=== PATIENT | female | born 1995 | race Caucasian/White ===

== ENCOUNTER 2022-10-26 16:25 | Emergency (ER) | payer BC ==
--- OUTSIDE RECORDS SUMMARY | 2022-10-26 16:30 | XMS REPORT | Continuity of Care Document ---
:1995 Author Organization [facility] t Address [address] [facility] [address] [place] [id number] Care Team Providers Name Role Phone SHERIDAN HERR Primary Care Physician Unavailable CANDIS RODRIGUEZ Attending Clinician Unavailable CANDIS RODRIGUEZ Attending Clinician Unavailable Terence TURN DOWN WORKERSheridan Walker Attending Clinician CITLALI RANGEL Attending Clinician Unavailable Citlali Jacobs Attending Clinician Unknown, Attending Attending Clinician Unavailable Ladarius Uriarte MD Attending Clinician Doctor Unassigned, [place] Attending Clinician Unavailable RAFAEL FITZGERALD Attending Clinician Unavailable SHERIDAN HERR Attending Clinician Unavailable Lab, Ang - Db Attending Clinician Unavailable XIAO REYNOLDS Attending Clinician Unavailable Payers Payer Name Policy Type Policy Number Effective Date Expiration Date S [facility] [place] OF [place] - [id number] 2021 00:00:00 OUT OF STATE Problems Condition Condition Condition Status Onset Resolution Last Treating Co mments Source Name Details Category Date Date Treatment Clinician Date Encounter Encounter Disease Active Uni vers for well for well 6-08 [place]y [place] exam [place] with with 00 Medical routine routine Branch gynecologi gynecologi jigar exam jigar exam BMI BMI Disease Active Univers 39.0-39.9, 39.0-39.9, 6-08 it y of adult adult 00:00: [place] 00 Medical Branch Screening Screening Disease Active Uni vers for for 6-08 [place] of malignant malignant [place] Med[place] of the of the Branch cervix cervix Allergies, Adverse Reactions, Alerts Allergy Allergy Status Severity Reaction(s) Onset Inactive Treating Comm ents Source Name Type Date Date Clinician Sulfa Propensi Active Hives Univers (Sulfona ty to 2-01 ity of mide adverse 00:00: [place] Antibiot reaction 00 Medica l ics) s Branch SULFA Drug Active Hives Univers (SULFONA Class 2-01 ity of MIDE 00:00: [place] ANTIBIOT 00 Medical ICS) Branch Social History Social Habit Start Date Stop Date Quantity Comments Source Exposure to 2022-03-30 2022-04-[address] [facility] SARS-CoV-2 00:00:00 08:39:00 [facility] (event) [place] Alcohol intake 2021-11-26 2021-11-[address] Ex-[address] [facility] 00:00:00 00:00:00 (finding) [facility] Tobacco use and 2021-07-22 2021-07-22 Smokeless tobacco Un iversity of exposure 00:00:00 00:00:00 non-user [facility] Sex Ass[birth year] At [birth year] Universit y of 00:00:00 00:00:00 [facility] Smoking Status Start Date Stop Date Source Never smoked tobacco [facility] Medications Ordered Filled Start Stop Current Ordering Indication Dosage Frequency Signature Comments Components Source Medication Medication Date Date Medication? Clinician (SIG) Name Name venlafaxine Yes [id number] 150mg Take 1 Univers XR 150 mg 1-02 capsule by ity of 24 hr 00:00: mouth [place] capsule 00 daily with Medica l breakfast. Branch codeine-gua 2021-06 No 10mL Take 10 mL Univers ifenesin 0-20 10-28 by mouth ity of 10-100 mg/5 00:00: 04:59 [place] 6 [place] mL oral 00 :00 (six) Medical solution hours as Branch needed for Cough for up to 7 days. Indication s: cough codeine-gua 2021-06- No 10mL Take 10 mL Univers ifenesin 0-20 10-28 by mouth ity of 10-100 mg/5 00:00: 04:59 [place] 6 [place] mL oral 00 :00 (six) Medical solution hours as Branch needed for Cough for up to 7 days. Indication s: cough predniSONE 2021-06- No [id number] 40mg Take 2 Univers 20 mg 0-20 10-26 tablets by ity of tablet 00:00: 04:59 mouth in [place] 00 :00 the Medical morning Branch for 5 days. predniSONE 2021-06- No [id number] 40mg Take 2 Univers 20 mg 0-20 10-26 tablets by ity of tablet 00:00: 04:59 mouth in [place] 00 :00 the Medical morning Branch for 5 days. venlafaxine 2021-06 Yes [id number] 150mg Take 1 Univers XR 150 mg 0-10 capsule by ity of 24 hr 00:00: mouth [place] capsule 00 daily with Medica l breakfast. Branch venlafaxine 2021-06 Yes [id number] 150mg Take 1 Univers XR 150 mg 0-10 capsule by ity of 24 hr 00:00: mouth [place] capsule 00 daily with Medica l breakfast. Branch venlafaxine 2021-06 Yes [id number] 150mg Take 1 Univers XR 150 mg 0-10 capsule by ity of 24 hr 00:00: mouth [place] capsule 00 daily with Medica l breakfast. Branch venlafaxine 2021-06- No [id number] 150mg Take 1 Univers XR 150 mg 0-10 01-02 capsule by ity of 24 hr 00:00: 00:00 mouth [place] capsule 00 :00 daily with Medica l breakfast. Branch venlafaxine Yes [id number] 150mg Take 1 Univers XR 150 mg 7-07 capsule by ity of 24 hr 00:00: mouth [place] capsule 00 daily with Medica l breakfast. Branch venlafaxine 2021- No [id number] 150mg Take 1 Univers XR 150 mg 7-07 10-10 capsule by ity of 24 hr 00:00: 00:00 mouth [place] capsule 00 :00 daily with Medica l breakfast. Branch mv-mn/iron Yes Take by Univ ers fum/FA/omeg 6-07 mouth. ity of a3,6,9#3 09:03: [place] ([facility] 10 Medical MULTI ORAL) Branch ferrous Yes 325mg Take 325 Unive rs sulfate 6-07 mg by ity of (IRON) 325 09:03: mouth 3 [place] mg (65 mg 10 (three) Medical iron) times Branch tablet daily with meals. Indication s: OTC Lactobacill 2022-0 Yes Take by Uni vers us 6-07 mouth. ity of rhamnosus 09:03: [place] [address] Medical (CULTURELLE Branch ORAL) mv-mn/iron 2022-0 Yes Take by Univ ers fum/FA/omeg 6-07 mouth. ity of a3,6,9#3 09:03: [place] ([facility] 10 Medical MULTI ORAL) Branch ferrous 2022-0 Yes 325mg Take 325 Unive rs sulfate 6-07 mg by ity of (IRON) 325 09:03: mouth 3 [place] mg (65 mg 10 (three) Medical iron) times Branch tablet daily with meals. Indication s: OTC Lactobacill 2022-0 Yes Take by Uni vers us 6-07 mouth. ity of rhamnosus 09:03: [place] [address] Medical (CULTURELLE Branch ORAL) mv-mn/iron 2-0 Yes Take by Univ ers fum/FA/omeg 6-07 mouth. ity of a3,6,9#3 09:03: [place] ([facility] Medical MULTI ORAL) Branch ferrous 2022-0 Yes 325mg Take 325 Unive rs sulfate 6-07 mg by ity of (IRON) 325 09:03: mouth 3 [place] mg (65 mg 10 (three) Medical iron) times Branch tablet daily with meals. Indication s: OTC Lactobacill 2-0 Yes Take by Uni vers us 6-07 mouth. ity of rhamnosus 09:03: [place] [address] Medical (CULTURELLE Branch ORAL) mv-mn/iron 2022-0 Yes Take by Univ ers fum/FA/omeg 6-07 mouth. ity of a3,6,9#3 09:03: [place] ([facility] Medical MULTI ORAL) Branch ferrous 2022-0 Yes 325mg Take 325 Unive rs sulfate 6-07 mg by ity of (IRON) 325 09:03: mouth 3 [place] mg (65 mg 10 (three) Medical iron) times Branch tablet daily with meals. Indication s: OTC Lactobacill 2022-0 Yes Take by Uni vers us 6-07 mouth. ity of rhamnosus 09:03: [place] [address] Medical (CULTURELLE Branch ORAL) mv-mn/iron 2021-0 Yes Take by Univ ers fum/FA/omeg 6-07 mouth. ity of a3,6,9#3 09:03: [place] ([facility] Medical MULTI ORAL) Branch ferrous 2021-0 Yes 325mg Take 325 Unive rs sulfate 6-07 mg by ity of (IRON) 325 09:03: [place] mg (65 mg 10 (three) Medical iron) times Branch tablet daily with meals. Indication s: OTC Lactobacill 2-0 Yes Take by Uni vers us 6-07 mouth. ity of rhamnosus 09:03: [place] [address] Medical (CULTURELLE Branch ORAL) mv-mn/iron 2021-0 Yes Take by Univ ers fum/FA/omeg 6-07 mouth. ity of a3,6,9#3 09:03: [place] ([place] [address] Medical MULTI ORAL) Branch ferrous 2021-0 Yes 325mg Take 325 Unive rs sulfate 6-07 mg by ity of (IRON) 325 09:03: mouth 3 [place] mg (65 mg 10 (three) Medical iron) times Branch tablet daily with meals. Indication s: OTC Lactobacill 2021-0 Yes Take by Uni vers us 6-07 mouth. ity of rhamnosus 09:03: [place] [address] Medical (CULTURELLE Branch ORAL) mv-mn/iron 2021-0 Yes Take by Univ ers fum/FA/omeg 6-07 mouth. ity of a3,6,9#3 09:03: [place] ([facility] 10 Medical MULTI ORAL) Branch ferrous 2021-0 Yes 325mg Take 325 Unive rs sulfate 6-07 mg by ity of (IRON) 325 09:03: mouth 3 [place] mg (65 mg 10 (three) Medical iron) times Branch tablet daily with meals. Indication s: OTC Lactobacill 2021-0 Yes Take by Uni vers us 6-07 mouth. ity of rhamnosus 09:03: [place] [address] Medical (CULTURELLE Branch ORAL) naltrexone- 2021-0 Yes [id number] 1{tbl} Take 1 Univers bupropion 5-17 104 tablet by ity o f (CONTRAVE) 00:00: [place] 8-90 mg per 00 (two) Medical tablet times Branch daily. Start 1 tab QAM for 1 week, then BID naltrexone- 2022-0 Yes [id number] 1{tbl} Take 1 Univers bupropion 5-17 104 tablet by ity o f (CONTRAVE) 00:00: mouth [place] 8-90 mg per 00 (two) Medical tablet times Branch daily. Start 1 tab QAM for 1 week, then BID naltrexone- 2022-0 Yes [id number] 1{tbl} Take 1 Univers bupropion 5-17 104 tablet by ity o f (CONTRAVE) 00:00: mouth 2 [place] 8-90 mg per 00 (two) Medical tablet times Branch daily. Start 1 tab QAM for 1 week, then BID naltrexone- 2022-0 Yes [id number] 1{tbl} Take 1 Univers bupropion 5-17 104 tablet by ity o f (CONTRAVE) 00:00: mouth 2 [place] 8-90 mg per 00 (two) Medical tablet times Branch daily. Start 1 tab QAM for 1 week, then BID naltrexone- 2022-0 Yes [id number] 1{tbl} Take 1 Univers bupropion 5-17 104 tablet by ity o f (CONTRAVE) 00:00: mouth 2 [place] 8-90 mg per 00 (two) Medical tablet times Branch daily. Start 1 tab QAM for 1 week, then BID naltrexone- 2022-0 2022- No [id number] 1{tbl} Take 1 Univers bupropion 5-17 10-20 104 tablet by ity of (CONTRAVE) 00:00: 00:00 mouth 2 [place] as 8-90 mg per 00 :00 (two) Medical tablet times Branch daily. Start 1 tab QAM for 1 week, then BID dicyclomine 2022-0 Yes 20mg Take 1 Univ ers 20 mg 3-14 tablet by ity of tablet 00:00: mouth (four) Medical times Branch daily. venlafaxine 2022-0 Yes 150mg Take 1 Uni vers XR 150 mg 3-14 capsule by ity of 24 hr 00:00: mouth [place] capsule 00 daily with Medica l breakfast. Branch dicyclomine 2022-0 Yes 20mg Take 1 Univ ers 20 mg 3-14 tablet by ity of tablet 00:00: mouth 4 00 (four) Medical times Branch daily. dicyclomine 2022-0 Yes 20mg Take 1 Univ ers 20 mg 3-14 tablet by ity of tablet 00:00: mouth [place] (four) Medical times Branch daily. dicyclomine 2022-0 Yes 20mg Take 1 Univ ers 20 mg 3-14 tablet by ity of tablet 00:00: mouth 4 [place] (four) Medical times Branch daily. dicyclomine 2022-0 Yes 20mg Take 1 Univ ers 20 mg 3-14 tablet by ity of tablet 00:00: mouth [place] (four) Medical times Branch daily. dicyclomine 2022-0 Yes 20mg Take 1 Univ ers 20 mg 3-14 tablet by ity of tablet 00:00: mouth [place] (four) Medical times Branch daily. dicyclomine 2021-0 Yes 20mg Take 1 Univ ers 20 mg 3-14 tablet by ity of tablet 00:00: mouth [place] (four) Medical times Branch daily. venlafaxine 2021-0 2021- No 150mg Take 1 Un citlali XR 150 mg 3-14 07-07 capsule by ity of 24 hr 00:00: 00:00 mouth [place] capsule 00 :00 daily with Medica l breakfast. Branch bromphenira 2021-0 Yes [id number] 5mL Take 5 mL Univers mine-pseudo 3-07 by mouth 4 it y of ephedrine-D 00:00: (four[place] M (BROMFED 00 times Medical DM) 2-30-10 daily as Bran ch mg/5 mL needed for syrup Congestion /Allergies or Cough. fexofenadin 2021-0 Yes [id number] 1{tbl} Take 1 Univers e-pseudoeph 3-07 tablet by ity of edrine 00:00: mouth 2 [place] (MACKENZIE-D) 00 (two) Medical 60-120 mg times Branch per tablet daily. albuterol 2021-0 Yes [id number] 2{puff} Inhale 2 Univers 90 3-07 Puffs ity of mcg/actuati 00:00: every 6 [place] on inhaler 00 (six) Medical hours as Branch needed for Wheezing or Shortness of Breath. bromphenira 2021-0 Yes [id number] 5mL Take 5 mL Univers mine-pseudo 3-07 by mouth 4 it y of ephedrine-D 00:00: (four[place] M (BROMFED 00 times Medical DM) 2-30-10 daily as Bran ch mg/5 mL needed for syrup Congestion /Allergies or Cough. fexofenadin Yes [id number] 1{tbl} Take 1 Univers e-pseudoeph 3-07 tablet by ity of edrine 00:00: mouth 2 [place] (MACKENZIE-D) 00 (two) Medical 60-120 mg times Branch per tablet daily. albuterol Yes [id number] 2{puff} Inhale 2 Univers 90 3-07 Puffs ity of mcg/actuati 00:00: every 6 [place] on inhaler 00 (six) Medical hours as Branch needed for Wheezing or Shortness of Breath. bromphenira Yes [id number] 5mL Take 5 mL Univers mine-pseudo 3-07 by mouth 4 it y of ephedrine-D 00:00: (four[place] M (BROMFED 00 times Medical DM) 2-30-10 daily as Bran ch mg/5 mL needed for syrup Congestion /Allergies or Cough. fexofenadin Yes [id number] 1{tbl} Take 1 Univers e-pseudoeph 3-07 tablet by ity of edrine 00:00: mouth 2 [place] (MACKENZIE-D) 00 (two) Medical 60-120 mg times Branch per tablet daily. albuterol 0 Yes [id number] 2{puff} Inhale 2 Univers 90 3-07 Puffs ity of mcg/actuati 00:00: every 6 [place] on inhaler 00 (six) Medical hours as Branch needed for Wheezing or Shortness of Breath. bromphenira 0 Yes [id number] 5mL Take 5 mL Univers mine-pseudo 3-07 by mouth 4 it y of ephedrine-D 00:00: (four[place] M (BROMFED 00 times Medical DM) 2-30-10 daily as Bran ch mg/5 mL needed for syrup Congestion /Allergies or Cough. fexofenadin 2021- Yes [id number] 1{tbl} Take 1 Univers e-pseudoeph 3-07 tablet by ity of edrine 00:00: mouth 2 [place] (MACKENZIE-D) 00 (two) Medical 60-120 mg times Branch per tablet daily. albuterol Yes [id number] 2{puff} Inhale 2 Univers 90 3-07 Puffs ity of mcg/actuati 00:00: every 6 [place] on inhaler 00 (six) Medical hours as Branch needed for Wheezing or Shortness of Breath. bromphenira 0 Yes [id number] 5mL Take 5 mL Univers mine-pseudo 3-07 by mouth 4 it y of ephedrine-D 00:00: (four[place] M (BROMFED 00 times Medical DM) 2-30-10 daily as Bran ch mg/5 mL needed for syrup Congestion /Allergies or Cough. fexofenadin 0 Yes [id number] 1{tbl} Take 1 Univers e-pseudoeph 3-07 tablet by ity of edrine 00:00: mouth 2 [place] (MACKENZIE-D) 00 (two) Medical 60-120 mg times Branch per tablet daily. albuterol Yes [id number] 2{puff} Inhale 2 Univers 90 3-07 Puffs ity of mcg/actuati 00:00: every 6 [place] on inhaler 00 (six) Medical hours as Branch needed for Wheezing or Shortness of Breath. bromphenira Yes [id number] 5mL Take 5 mL Univers mine-pseudo 3-07 by mouth 4 it y of ephedrine-D 00:00: (four[place] M (BROMFED 00 times Medical DM) 2-30-10 daily as Bran ch mg/5 mL needed for syrup Congestion /Allergies or Cough. fexofenadin 0 Yes [id number] 1{tbl} Take 1 Univers e-pseudoeph 3-07 tablet by ity of edrine 00:00: mouth 2 [place] (MACKENZIE-D) 00 (two) Medical 60-120 mg times Branch per tablet daily. albuterol 0 Yes [id number] 2{puff} Inhale 2 Univers 90 3-07 Puffs ity of mcg/actuati 00:00: every 6 [place] on inhaler 00 (six) Medical hours as Branch needed for Wheezing or Shortness of Breath. bromphenira 2022-0 Yes [id number] 5mL Take 5 mL Univers mine-pseudo 3-07 by mouth 4 it y of ephedrine-D 00:00: (four[place] M (BROMFED 00 times Medical DM) 2-30-10 daily as Bran ch mg/5 mL needed for syrup Congestion /Allergies or Cough. fexofenadin 2021-0 Yes [id number] 1{tbl} Take 1 Univers e-pseudoeph 3-07 tablet by ity of edrine 00:00: mouth 2 [place] (MACKENZIE-D) 00 (two) Medical 60-120 mg times Branch per tablet daily. albuterol 2021-0 Yes [id number] 2{puff} Inhale 2 Univers 90 3-07 Puffs ity of mcg/actuati 00:00: every 6 [place] on inhaler 00 (six) Medical hours as Branch needed for Wheezing or Shortness of Breath. busPIRone 5 2021-0 Yes 5mg Take 5 mg U nivers mg tablet 2-01 by mouth 2 ity of 13:16: (two) [place] 48 times Medical daily. Branch busPIRone 5 2021-0 Yes 5mg Take 5 mg U nivers mg tablet 2-01 by mouth 2 ity of 13:16: (two) [place] 48 times Medical daily. Branch busPIRone 5 2021-0 Yes 5mg Take 5 mg U nivers mg tablet 2-01 by mouth 2 ity of 13:16: (two) [place] 48 times Medical daily. Branch busPIRone 5 2-0 Yes 5mg Take 5 mg U nivers mg tablet 2-01 by mouth 2 ity of 13:16: (two) [place] 48 times Medical daily. Branch busPIRone 5 2-0 Yes 5mg Take 5 mg U nivers mg tablet 2-01 by mouth 2 ity of 13:16: (two) [place] 48 times Medical daily. Branch busPIRone 5 2022-0 Yes 5mg Take 5 mg U nivers mg tablet 2-01 by mouth 2 ity of 13:16: (two) [place] 48 times Medical daily. Branch busPIRone 5 2-0 Yes 5mg Take 5 mg U nivers mg tablet 2-01 by mouth 2 ity of 13:16: (two) [place] 48 times Medical daily. Branch Immunizations Ordered Filled Immunization Date Status Comments [facility] Immunization Name Name SARS-COV-2 COVID-19 2021-05-27 Completed Unive rsity of MODERNA VACCINE 00:00:00 [place] [facility] Branch SARS-COV-2 COVID-19 2021-05-27 Completed Unive rsity of MODERNA VACCINE 00:00:00 [facility] Branch SARS-COV-2 COVID-19 2021-05-27 Completed Unive rsity of MODERNA 12+ YRS 00:00:00 [facility] VACCINE Branch SARS-COV-2 COVID-19 2021-05-27 Completed Unive rsity of MODERNA 12+ YRS 00:00:00 [facility] VACCINE Branch SARS-COV-2 COVID-19 2021-05-27 Completed Unive rsity of MODERNA 12+ YRS 00:00:00 [facility] VACCINE Branch SARS-COV-2 COVID-19 2021-05-27 Completed Unive rsity of MODERNA 12+ YRS 00:00:00 [facility] VACCINE Branch SARS-COV-2 COVID-19 2021-05-27 Completed Unive rsity of MODERNA 12+ YRS 00:00:00 [facility] VACCINE Branch Influenza Virus 2021-03-21 Completed Universit y of Vaccine Quad IM 3+ 00:00:00 [facility] Influenza Virus 2021-03-21 Completed Universit y of Vaccine Quad IM 3+ 00:00:00 [facility] Influenza Virus 2021-03-21 Completed Universit y of Vaccine Quad IM 3+ 00:00:00 [facility] Influenza Virus 2021-03-21 Completed Universit y of Vaccine Quad IM 3+ 00:00:00 [facility] Influenza Virus 2021-03-21 Completed Universit y of Vaccine Quad IM 3+ 00:00:00 [facility] Influenza Virus 2021-03-21 Completed Universit y of Vaccine Quad IM 3+ 00:00:00 [facility] Influenza Virus 2021-03-21 Completed Universit y of Vaccine Quad IM 3+ 00:00:00 [facility] DTAP 2020-07-31 Completed University of 00:00:00 [facility] DTAP 2020-07-31 Completed University of 00:00:00 [facility] DTAP 2020-07-31 Completed University of 00:00:00 [facility] Branch DTAP 2020-07-31 Completed University of 00:00:00 [facility] Branch DTAP 2020-07-31 Completed University of 00:00:00 [facility] Branch DTAP 2020-07-31 Completed University of 00:00:00 [facility] DTAP 2020-07-31 Completed University of 00:00:00 [facility] SARS-COV-2 COVID-19 2020-07-13 Completed Unive rsity of MODERNA VACCINE 00:00:00 [facility] ical Branch SARS-COV-2 COVID-19 2020-07-13 Completed Unive rsity of MODERNA VACCINE 00:00:00 [facility] ical Branch SARS-COV-2 COVID-19 2020-07-13 Completed Unive rsity of MODERNA 12+ YRS 00:00:00 [facility] ical VACCINE Branch SARS-COV-2 COVID-19 2020-07-13 Completed Unive rsity of MODERNA 12+ YRS 00:00:[address] [place] [facility] ical VACCINE Branch SARS-COV-2 COVID-19 2020-07-13 Completed Unive rsity of MODERNA 12+ YRS 00:00:[address] [place] [facility] ical VACCINE Branch SARS-COV-2 COVID-19 2020-07-13 Completed Unive rsity of MODERNA 12+ YRS 00:00:00 [facility] ical VACCINE Branch SARS-COV-2 COVID-19 2020-07-13 Completed Unive rsity of MODERNA 12+ YRS 00:00:[address] [place] [facility] ical VACCINE Branch SARS-COV-2 COVID-19 2020-06-15 Completed Unive rsity of MODERNA VACCINE 00:00:[address] [place] [facility] ical Branch SARS-COV-2 COVID-19 2020-06-15 Completed Unive rsity of MODERNA VACCINE 00:00:[address] [place] [facility] ical Branch SARS-COV-2 COVID-19 2020-06-15 Completed Unive rsity of MODERNA 12+ YRS 00:00:[address] [place] [facility] ical VACCINE Branch SARS-COV-2 COVID-19 2020-06-15 Completed Unive rsity of MODERNA 12+ YRS 00:00:[address] [place] [facility] ical VACCINE Branch SARS-COV-2 COVID-19 2020-06-15 Completed Unive rsity of MODERNA 12+ YRS 00:00:00 [place] [facility] ical VACCINE Branch SARS-COV-2 COVID-19 2020-06-15 Completed Unive rsity of MODERNA 12+ YRS 00:00:00 [place] [facility] ical VACCINE Branch SARS-COV-2 COVID-19 2020-06-15 Completed Unive rsity of MODERNA 12+ YRS 00:00:00 [facility] ical VACCINE Branch Vital Signs Vital Name Observation Time Observation Value Comments Source Systolic blood 2022-04-09 14:48:00 107 mm[Hg] Univer sity of pressure [facility] Diastolic blood 2022-04-09 14:48:00 71 mm[Hg] Unive rsity of pressure [facility] Heart rate 2022-04-09 14:48:00 83 /min Universi ty of [facility] Body temperature 2022-04-09 14:48:00 37.06 Aliya [facility] ersity of [facility] Respiratory rate 2022-04-09 14:48:00 16 /min [facility] ersity of [facility] Body height 2022-04-09 14:48:00 161 cm Universi ty of [place] Medical [place] Body weight 2022-04-09 14:48:00 103.619 kg Universi ty of [facility] BMI 2022-04-09 14:48:00 39.97 kg/m2 Universi ty [facility] Oxygen saturation in 2022-04-09 14:48:00 97 /min [facility] Arterial blood by [facility] Pulse oximetry Branch Systolic blood 2021-11-25 14:01:00 118 mm[Hg] Univer sity of pressure [facility] Diastolic blood 2021-11-25 14:01:00 78 mm[Hg] Unive rsity of pressure [facility] Heart rate 2021-11-25 14:01:00 94 /min Universi ty of [facility] Body temperature 2021-11-25 14:01:00 36.78 Aliya [facility] ersity of [facility] Body height 2021-11-25 14:01:00 160 cm Universi ty of [facility] Body weight 2021-11-25 14:01:00 100.562 kg Universi ty of [facility] BMI 2021-11-25 14:01:00 39.27 kg/m2 Universi ty [facility] Procedures Procedure Date / Time Performed Performing Clinician [facility] PAP SMEAR-LIQUID 2021-11-25 14:14:00 Candis Rodriguez [facility] Encounters Start End Encounter Admission Attending Care Care Encounter Source Date/Time Date/Time Type Type Clinicians Facility Department ID 2022-11-25 2022-11-25 Outpatient R CANDIS RODRIGUEZ [facility] B [id number] Univers 13:00:00 13:00:00 [facility] [id number] Univers 00:00:00 00:00:00 [place] [facility] [id number] it y [facility] [id number] Yasir as PHILOMENA?BLEA [id number] [address] OFFICE [facility] 2022-04-09 2022-04-09 Outpatient R BOBBI NEADDI [facility] [id number] Univers 10:00:00 10:26:06 CITLALI adame [facility] 2022-04-09 2022-04-09 Urgent Citlali Rangel [facility] [id number] Univers 10:00:00 10:26:06 Care Unknown, Attending HEALTH [id number] ity [facility] [id number] Yasir as PHILOMENA?BLEA [id number] [address] OFFICE [facility] 2022-04-09 2022-04-09 Letter Bobbi NEADDI [id number] Univers 00:00:00 00:00:00 (Out) Rania HEALTH [id number] it y of [place] [id number] Yasir as PHILOMENA?BLEA [id number] [address] OFFICE [facility] 2022-03-30 2022-03-30 [facility] [id number] Univers 00:00:00 00:00:00 [place] [facility] [id number] it y of [place] [id number] Yasir as PHILOMENA?BLEA [id number] [address] MEDICAL OFFICE [facility] 2022-03-29 2022-03-29 Refill Chapito [facility] [id number] Univers 00:00:00 00:00:00 [place] HEALTH [id number] it y [facility] [id number] Yasir as PHILOMENA?BLEA [id number] [address] OFFICE [facility] 2021-12-25 2021-12-25 Refill Doctor [facility] 1.2.840.114 [id number] Univers 00:00:00 00:00:00 Unassigned, HEALTH 350.1.13.10 ity of [place] 4.2.7.2.686 Yasir as PHILOMENA?BLEA [phone] [address] OFFICE [facility] 2021-11-25 2021-11-25 Outpatient R AMILCAR [facility] [id number] Univers 10:15:00 10:15:00 RAFAEL adame [facility] 2021-11-25 2021-11-25 Outpatient R CANDIS RODRIGUEZ [facility] B [id number] Univers 09:00:00 09:16:08 CANDIS RODRIGUEZ [facility] 2021-11-25 2021-11-25 Office Reji [facility] 1.2.840.114 [id number] Univers 09:00:00 09:16:08 Visit Candis BOSTON 350.1.13.10 it y of [place] 4.2.7.2.686 [place] [facility] [id number] [address] 2021-11-25 2021-11-25 Outpatient R CANDIS RODRIGUEZ [facility] B [id number] Univers 09:00:00 09:16:08 CANDIS RODRIGUEZ [facility] 2021-11-04 2021-11-04 Outpatient R TERENCE [facility] [id number] Univers 10:30:00 11:35:43 SHERIDAN adame [facility] 2021-11-04 2021-11-04 Office Terence [facility] 1.2.840.114 [id number] Univers 10:30:00 11:35:43 Visit Sheridan CARDONA 350.1.13.10 it y of [place] 4.2.7.2.686 Yasir as PHILOMENA?BLEA [id number] [address] OFFICE [facility] 2021-11-04 2021-11-04 Outpatient R TERENCE [facility] [id number] Univers 10:30:00 11:35:43 SHERIDAN ity of [facility] 2021-11-04 2021-11-04 [facility], Ang - Db [facility] 1.2.840.1 [id number] Univers 11:15:00 11:30:00 Visit Sheridan Herr 350.1.13.10 ity of [place] 4.2.7.2.686 Yasir as PHILOMENA?BLEA [phone] [facility] [address] [facility] OFFICE [facility] 2021-11-04 2021-11-04 [facility] [id number] Univers 00:00:00 00:00:00 Sheridan HEALTH 350.1.13.10 it y of [place] 4.2.7.2.686 Yasir as PHILOMENA?BLEA [id number] [address] OFFICE [facility] 2021-11-04 2021-11-04 Orders Doctor HUERTA 1.2.840.114 [id number] Univers 00:00:00 00:00:00 Only Unassigned, MADELINE 350.1.13.10 ity of [place] [facility] 4.2.7.2.686 Yasir as [id number] [address] 2021-09-29 2021-09-29 [facility] [id number] Univers 00:00:00 00:00:00 Sheridan HEALTH 350.1.13.10 it y of [place] 4.2.7.2.686 Yasir as PHILOMENA?BLEA [id number] [address] MEDICAL OFFICE [facility] 2021-09-29 2021-09-29 Orders Doctor HUERTA 1.2.840.114 [id number] Univers 00:00:00 00:00:00 Only Unassigned, MADELINE 350.1.13.10 ity of [place] [facility] 4.2.7.2.686 Yasir as [phone] [address] 2021-09-25 2021-09-25 Telephone [facility] [id number] Univers 00:00:00 00:00:00 Sheridan HEALTH 350.1.13.10 it y [facility] 4.2.7.2.686 Yasir as PHILOMENA?BLEA [id number] [address] MEDICAL OFFICE BUILDING 2021-09-25 2021-09-25 Patient [facility] 1.2.840.114 [id number] Univers 00:00:00 00:00:00 Secure Msg Sheridan HEALTH [id number] [facility]y [facility] 4.2.7.2.686 Yasir as PHILOMENA?BLEA [phone] [address] OFFICE [facility] 2021-09-25 2021-09-25 Refill [facility] 1.2.840.114 [id number] Univers 00:00:00 00:00:00 Sheridan HEALTH 350.1.13.10 it y of [place] 4.2.7.2.686 Yasir as PHILOMENA?BLEA [phone] [address] OFFICE [facility] 2021-09-23 2021-09-23 [facility] [id number] Univers 14:30:00 15:21:43 SHERIDAN ity of [facility] 2021-09-23 2021-09-23 Office [facility] 1.2.840.114 [id number] Univers 14:30:00 15:21:43 Visit Sheridan HEALTH 350.1.13.10 it y of [place] 4.2.7.2.686 Yasir as PHILOMENA?BLEA [id number] [address] OFFICE [facility] 2021-09-23 2021-09-23 [facility] [id number] Univers 14:30:00 15:21:43 SHERIDAN ity of [facility] 2021-08-25 2021-08-25 Outpatient R GAIL [facility] [id number] Univers 15:00:00 15:00:00 XIAO ity o f [facility] 2021-07-22 2021-07-22 [facility] 1.2.840.114 [id number] Univers 14:01:45 23:59:00 Encounter Sheridan HEALTH 350.1.13.10 ity of [place] 4.2.7.2.686 Yasir as PHILOMENA?BLEA [phone] Wy meghna MASON [address] MEDICAL OFFICE [facility] 2021-07-22 2021-07-22 [facility], Ang - Db [facility] 1.2.840.1 14 [id number] Univers 14:30:00 14:45:00 Visit Terence Sheridan CARDONA 350.1.13.10 ity of [place] 4.2.7.2.686 Yasir as PHILOMENA?BLEA [phone] Wy meghna MASON [address] [facility] OFFICE [facility] 2021-07-22 2021-07-22 [facility] [id number] Univers 13:00:00 14:03:45 SHERIDAN itlandy [facility] 2021-07-22 2021-07-22 [facility] [id number] Univers 13:00:00 14:03:45 SHERIDAN ity [facility] 2021-07-22 2021-07-22 Office [facility] 1..840.114 [id number] Univers 13:00:00 14:03:45 Visit Sheridan [facility] 350.1.13.10 it y [facility] 4.2.7.2.686 Yasir as PHILOMENA?BLEA [phone] Wy meghna MASON [address] [facility] OFFICE [facility] 2021-07-22 2021-07-22 [facility] [id number] Univers 14:01:45 14:01:45 SHERIDAN bulmaroy [facility] 2021-07-22 2021-07-22 Orders Doctor HUERTA 1.2.840.114 [id number] Univers 00:00:00 00:00:00 Only Unassigned, MADELINE 350.1.13.10 ity of [place] [facility] 4.2.7.2.686 Yasir as [phone] [facility] [address] Results This patient has no known results.
--- NOTE | 2022-10-26 16:54 | ER ---
Nurse's Notes [facility] Name: Gabby Simental Age: 27 yrs Sex: Female : 1995 Arrival Date: 10/26/2022 Time: 16:25 Bed IW9 Private MD: Diagnosis: Streptococcal pharyngitis Presentation: 10/26 16:45 Chief complaint: Patient states: she started having a sore throat approx one week ago. ap3 she states she had a telehealth visit yesterday and started amoxicillin today. Coronavirus screen: Client presents with at least one sign or symptom that may indicate coronavirus-19. Ebola Screen: No symptoms or risks identified at this time. Initial Sepsis Screen: Does the patient meet any 2 criteria? No. Patient's initial sepsis screen is negative. Does the patient have a suspected source of infection? No. Patient's initial sepsis screen is negative. Risk Assessment: Do you want to hurt yourself or someone else? Patient reports no desire to harm self or others. Onset of symptoms was October 19, 2022. 16:45 Method Of Arrival: Ambulatory ap3 16:45 Method Of Arrival: Ambulatory ap3 16:45 Acuity: JAIME 4 ap3 Triage Assessment: 16:48 General: Appears in no apparent distress. Behavior is calm, cooperative, appropriate ap3 for age. Pain: Complains of pain in throat. EENT: Reports pain when swallowing. Neuro: Level of Consciousness is awake, alert, obeys commands, Oriented to person, place, time, situation. Cardiovascular: Patient's skin is warm and dry. Respiratory: Airway is patent Respiratory effort is even, unlabored, Respiratory pattern is regular, symmetrical. 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 - Social history:: Smoking status: Patient denies any tobacco usage or history of. Screenin:48 [facility] ED Fall Risk Assessment (Adult) History of falling in the last 3 months, ap3 including since admission No falls in past 3 months (0 pts). Abuse screen: Denies threats or abuse. Nutritional screening: No deficits noted. Tuberculosis screening: No symptoms or risk factors identified. Assessment: 17:01 Respiratory: ap3 17:01 EENT: Throat. ap3 Vital Signs: 16:45 BP 110 / 75; Pulse 106; Resp 16; Temp 99.3; Pulse Ox 100% on R/A; Weight 95.25 kg; ap3 ED Course: 16:29 Patient arrived in ED. mr 16:30 Mckayla Marlow FNP-C [facility]. kb 16:30 Isreal Mcmahon MD is Attending Physician. kb 16:47 Triage completed. ap3 16:48 Arm band placed on right wrist. ap3 17:01 Patient has correct armband on for positive identification. Adult w/ patient. ap3 17:01 No provider procedures requiring assistance completed. Patient did not have IV access ap3 during this emergency room visit. Administered Medications: 16:58 Drug: GI Cocktail without - (Maalox PO Suspension 30 ml, Lidocaine Mucous ap3 Membrane Liquid 2 % 15 ml) Route: PO; 17:01 Follow up: Response: No adverse reaction ap3 16:58 Drug: Ketorolac IM 30 mg Route: IM; Site: right deltoid; ap3 17:01 Follow up: Response: No adverse reaction ap3 Medication: 17:01 VIS not applicable for this client. ap3 Outcome: 16:54 Discharge ordered by . kb 17:01 Discharged to home ambulatory. ap3 17:01 Condition: good 17:01 Discharge instructions given to patient, Instructed on discharge instructions, follow up and referral plans. Demonstrated understanding of instructions, follow-up care. 17:02 Patient left the ED. ap3 Signatures: Mckayla Marlow FNP-C FNP-Ckb Christina MccallYady, RN RN ap3
--- NOTE | 2022-10-26 16:54 | EDPHYS ---
Physician Documentation [facility] Name: Gabby Simental Age: 27 yrs Sex: Female : 1995 Arrival Date: 10/26/2022 Time: 16:25 Bed IW9 Private MD: CIARRA Physician Isreal Mcmahon HPI: 10/26 16:56 This 27 yrs old Female presents to ER via Ambulatory with complaints of Sore Throat. kb 16:56 The patient presents with sore throat. The patient describes throat pain as constant. kb Onset: The symptoms/episode began/occurred 6 day(s) ago. Severity of symptoms: At their worst the symptoms were moderate, in the emergency department the symptoms are unchanged. Modifying factors: The symptoms are alleviated by nothing, the symptoms are aggravated by swallowing, Patient's oral intake status: limited fluid intake, limited food intake. Associated signs and symptoms: Pertinent positives: fever, Sore throat. The patient has not experienced similar symptoms in the past. The patient has been recently seen by a physician:. Pt reports sore throat and low grade fever for 6 days. Had a teledoc visit this morning and was started on Augmentin, but came in for something for pain.. 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 - Social history:: Smoking status: Patient denies any tobacco usage or history of. ROS: 16:54 Respiratory: Negative for shortness of breath, cough, wheezing, and pleuritic chest kb pain. 16:54 Constitutional: Positive for fever, malaise. 16:54 ENT: Positive for sore throat. 16:54 All other systems are negative. Exam: 16:54 Constitutional: This is a well developed, well nourished patient who is awake, alert, kb and in no acute distress. Head/Face: Normocephalic, atraumatic. Cardiovascular: Regular rate and rhythm with a normal S1 and S2. No gallops, murmurs, or rubs. No pulse deficits. Respiratory: Respirations even and unlabored. No increased work of breathing. Talking in full sentences Skin: Warm, dry with normal turgor. Normal color. MS/ Extremity: Pulses equal, no cyanosis. Neurovascular intact. Full, normal range of motion. Neuro: Awake and alert, GCS 15, oriented to person, place, time, and situation. Moves all extremities. Normal gait. 16:54 ENT: Posterior pharynx: Airway: normal, patent, Tonsils: bilaterally enlarged, with erythema, Uvula: normal, midline, swelling, that is mild, erythema, that is moderate, exudate, is not appreciated. Vital Signs: 16:45 BP 110 / 75; Pulse 106; Resp 16; Temp 99.3; Pulse Ox 100% on R/A; Weight 95.25 kg; ap3 MDM: 16:31 Patient medically screened. kb 16:55 Differential diagnosis: strep, tonsillitis, pharyngitis. Data reviewed: vital signs, kb nurses notes. Test considered but Not performed: Labs: strep test considered, but pt was started on antibiotics this morning so results would not change course of treatment. Counseling: I had a detailed discussion with the patient and/or guardian regarding: the historical points, exam findings, and any diagnostic results supporting the discharge/admit diagnosis, the need for outpatient follow up, a family practitioner, to return to the emergency department if symptoms worsen or persist or if there are any questions or concerns that arise at home. Administered Medications: 16:58 Drug: GI Cocktail without - (Maalox PO Suspension 30 ml, Lidocaine Mucous ap3 Membrane Liquid 2 % 15 ml) Route: PO; 17:01 Follow up: Response: No adverse reaction ap3 16:58 Drug: Ketorolac IM 30 mg Route: IM; Site: right deltoid; ap3 17:01 Follow up: Response: No adverse reaction ap3 Disposition Summary: 10/26/22 16:54 Discharge Ordered Location: Home kb Condition: Stable kb Diagnosis - Streptococcal pharyngitis kb Followup: kb - With: Emergency Department - When: As needed - Reason: Worsening of condition Followup: kb - With: Private Physician - When: 2 - 3 days - Reason: Recheck today's complaints, Continuance of care, Re-evaluation by your physician Discharge Instructions: - Discharge Summary Sheet kb - Strep Throat, Adult, [id number] kb Forms: - Medication Reconciliation Form kb - Thank You Letter kb - Antibiotic Education kb - Prescription Opioid Use kb Signatures: Mckayla Marlow, COMBAT SYSTEMS OPERATOR [employer]-C COMBAT SYSTEMS OPERATOR [employer]-Ckb Yady Mayes, RN RN ap3
[2022-10-26] MEDS ORDERED: MAGNES/ALUMIN/SIMET 30ML UCUP ONE (17:00)
[2022-10-26] MEDS ORDERED: KETOROLAC 30 MG/ML INJ ONE (17:00)
[2022-10-26] MEDS ORDERED: LIDOCAINE VISCOUS 2% SOLN 15 ML UDC ONE (17:00)
[2022-10-26 17:15] VITALS: BP 110/75; TEMP 99.3; O2SAT 100
== END 2022-10-26 17:02 | disposition home or self-care (01) ==
LOC: ER 16:25
DX: J02.0 Streptococcal pharyngitis (principal)
CPT/HCPCS: 96372; 99284